=== PATIENT | male | born 1970 | race Hispanic/Latino ===

== ENCOUNTER → 2016-08-25 | Outpatient (CLI) | payer SELFPAY ==
--- NOTE | 2016-08-25 16:22 | CR ---
EXAMINATION: Two-view chest (PA and Lateral views). HISTORY: Cough. FINDINGS: The trachea is midline. The cardiomediastinal silhouette is within normal limits. No pulmonary infil trates, effusions or pneumothorax. Osseous structures appear unremarkable. IMPRESSION: No acute cardiopulmonary process.
== END ==
LOC: MW.CHFP 15:19
PROVIDERS: ATTEND Nurse Practitioner Family
DX: R05 Cough (principal)
CPT/HCPCS: 36415; 71020; 71020-26; 85025

== ENCOUNTER 2019-04-05 01:16 | Emergency (ER) | payer SELFPAY ==
[2019-04-05 01:26] VITALS: BP 128/79
[2019-04-05] MEDS ORDERED: Lidocaine 2% Viscous Solution 15 ML Cup PO ONE (01:38)
--- NOTE | 2019-04-05 01:38 | EDM.PDOC ---
ED HPI GENERAL MEDICAL PROBLEM - General Chief Complaint: ENT Problem Stated Complaint: PT BITE HIS TOUGUE Time Seen by Provider: 04/05/19 01:32 - History of Present Illness INITIAL COMMENTS - FREE TEXT/NARRATIVE: HISTORY AND PHYSICAL: History of present illness: The patient is a healthy 49-year-old male who presents after biting his tongue twice while eating pineapple tonight at dinner. He says he keeps bleeding and he is concerned. He has no other complaints and no fevers no chills no nausea vomiting. Review of systems: As per history of present illness and below otherwise all systems reviewed and negative. Past medical history: As per history of present illness and as reviewed below otherwise noncontributory. Surgical history: As per history of present illness and as reviewed below otherwise noncontributory. Social history: No reported history of drug or alcohol abuse. Family history: As per history of present illness and as reviewed below otherwise noncontributory. Physical exam: General: Well-developed well-nourished man who is nontoxic and speaking clearly in the ED. As I'm interviewing he is not spitting blood out of his mouth and is maintaining his secretions. HEENT: Atraumatic, normocephalic, pupils reactive, negative for conjunctival pallor or scleral icterus, mucous membranes moist, throat clear, neck supple, nontender, trachea midline. At the midpoint of the tongue just to the right of the midline there is a small laceration measuring less than 1 cm in length and on my initial evaluation there was no bleeding but with some manipulation there is a small loose and there is no gross swelling of the area. The patient is able to tolerate exam well and there are no other intraoral lesions. Lungs: Clear to auscultation, breath sounds equal bilaterally, chest nontender. Heart: S1S2, regular rate and rhythm no overt murmurs Abdomen: Soft, nondistended, nontender. NABS Pelvis: Deferred Genitourinary: Deferred. Rectal: Deferred. Extremities: Atraumatic, range of motion and no distal edema. Neurovascular unremarkable. Neuro: Awake, alert, oriented. Cranial nerves II through XII unremarkable. Cerebellum unremarkable. Motor and sensory unremarkable throughout. Exam nonfocal. Diagnostics: None Therapeutics: Viscous lidocaine for pain, local compression and T bag application per nursing Impression: Small tongue laceration stable Definitive disposition and diagnosis as appropriate pending reevaluation and review of above. Oral/Mouth Pain Score (Numeric/FACES): 7 - Related Data Allergies Allergy/AdvReac Type Severity Reaction Status Date / Time No Known Allergies Allergy Verified 04/05/19 01:23 Home Meds: Home Meds . [No Known Home Meds] 12/16/15 [History] Past Medical History - Past Health History Medical/Surgical History: Denies Medical/Surgical History - Infectious Disease History Infectious Disease History: Reports: Chicken Pox - Past Surgical History Head Surgeries/Procedures: Reports: None GI Surgical History: Reports: Appendectomy, Hernia, Inguinal Social & Family History - Family History Family Medical History: Noncontributory - Tobacco Use Smoking Status *Q: Never Smoker - Caffeine Use Caffeine Use: Reports: Coffee, Soda, Tea - Recreational Drug Use Recreational Drug Use: No ED ROS GENERAL - Review of Systems Review Of Systems: ROS reveals no pertinent complaints other than HPI. ED EXAM, GENERAL - Physical Exam Exam: See Below (See dictation) Course - Vital Signs Last Recorded V/S: Last Vital Signs Temp 36.1 C 04/05/19 01:23 Pulse 78 04/05/19 01:23 Resp 16 04/05/19 01:23 BP 128/79 04/05/19 01:23 Pulse Ox 96 04/05/19 01:23 - Orders/Labs/Meds Meds: Medications Discontinued Medications Generic Name Dose Route Start Last Admin Trade Name Cecelia PRN Reason Stop Dose Admin Lidocaine HCl 15 ml 04/05/19 01:38 Xylocaine 2% Viscous PO 04/05/19 01:39 ONETIME ONE Departure - Departure Time of Disposition: 02:01 Disposition: Home, Self-Care 01 Condition: Good Clinical Impression: Simple laceration of tongue - Discharge Information Referrals: PCP,None [Primary Care Provider] - Forms: ED Department Discharge Additional Instructions: The following information is given to patients seen in the emergency department who are being discharged to home. This information is to outline your options for follow-up care. We provide all patients seen in our emergency department with a follow-up referral. The need for follow-up, as well as the timing and circumstances, are variable depending upon the specifics of your emergency department visit. If you don't have a primary care physician on staff, we will provide you with a referral. We always advise you to contact your personal physician following an emergency department visit to inform them of the circumstance of the visit and for follow-up with them and/or the need for any referrals to a consulting specialist. The emergency department will also refer you to a specialist when appropriate. This referral assures that you have the opportunity for followup care with a specialist. All of these measure are taken in an effort to provide you with optimal care, which includes your followup. Under all circumstances we always encourage you to contact your private physician who remains a resource for coordinating your care. When calling for followup care, please make the office aware that this follow-up is from your recent emergency room visit. If for any reason you are refused follow-up, please contact the [facility] emergency department at and ask to speak to the emergency department charge nurse. [facility] Primary care- Internal Medicine and Family [facility] [address] Soft diet avoiding foods with a lot of acid, jagged edges and salt.. If bleeding restarts apply pressure and try to avoid manipulating your tongue so as not to aggravate the area. It will bleed intermittently on and off over the next 12-24 hours. Rinse your mouth gently with water after each time you eat. Return to ER as needed and as discussed
[2019-04-05 02:32] VITALS: PULSE 67
== END 2019-04-05 02:33 | disposition home or self-care (01) ==
LOC: MW.ED 01:16
DX: S01.512A Laceration without foreign body of oral cavity, initial encounter (principal); X58.XXXA Exposure to other specified factors, initial encounter
CPT/HCPCS: 99282; A9270

== ENCOUNTER 2024-11-28 14:01 | Emergency (ER) | payer SELFPAY ==
[2024-11-28] MEDS ORDERED: Sodium Chloride 0.9% 10 ML Syringe FLUSH PRN (14:10)
[2024-11-28] MEDS ORDERED: Sodium Chloride 0.9% 2.5 ML Syringe FLUSH PRN (14:10)
[2024-11-28] MEDS ORDERED: Sodium Chloride 0.9% 20 ML SDV IV PRN (14:10)
[2024-11-28 14:24] LABS: BASOPHILS ABSOLUTE AUTO 0.07 K/uL (0.00-0.20); BASOPHILS PERCENT AUTO 0.9 % (0.0-1.0); EOSINOPHILS ABSOLUTE AUTO 0.13 K/uL (0.00-0.45); EOSINOPHILS PERCENT AUTO 1.6 % (0.0-6.0); HEMOGLOBIN 15.8 g/dL (14.0-18.0); IMMATURE GRAN ABSOLUTE AUTO 0.02 K/uL (0.00-0.05); IMMATURE GRAN PERCENT AUTO 0.2 % (0.0-0.4); LYMPHOCYTES ABSOLUTE AUTO 3.41 K/uL (1.00-4.80); LYMPHOCYTES PERCENT AUTO 42.2 % (24.0-44.0); MEAN CORPUSCULAR HEMOGLOBIN 28.9 pg (28.0-32.0); MEAN CORPUSCULAR HGB CONC 34.3 g/dL (32.0-36.0); MEAN CORPUSCULAR VOLUME 84.1 fL (83.0-99.0); MEAN PLATELET VOLUME 10.6 fL (9.4-12.4); MONOCYTES PERCENT AUTO 8.7 % (0.0-8.0); NEUTROPHILS ABSOLUTE AUTO 3.75 K/uL (1.80-7.70); NEUTROPHILS PERCENT AUTO 46.4 % (41.0-71.0); PLATELET COUNT,PLT 227 K/uL (150-400); RED BLOOD CELL COUNT 5.47 M/uL (4.52-5.90); WHITE BLOOD CELL COUNT,WBC 8.08 K/uL (3.9-11.3)
[2024-11-28 14:35] LABS: INR 0.99 (0.86-1.11); PTT,PARTIAL THROMBOPLSTIN TIME 29.9 SEC (23.9-30.7)
[2024-11-28 14:43] LABS: A/G RATIO 1.2 (0.9-1.6); ALBUMIN 3.8 g/dL (3.4-5.0); BILIRUBIN TOTAL 0.4 mg/dL (0.2-1.0); CALCIUM 8.8 mg/dL (8.5-10.1); CARBON DIOXIDE,CO2 29.9 mmol/L (21.0-32.0); CREATININE 1.1 mg/dL (0.8-1.3); POTASSIUM,K 3.9 mmol/L (3.5-5.1)
[2024-11-28] MEDS: Iopamidol 755 MG/ML 500 ML Multipack Bottle IVPUSH STA (15:08)
[2024-11-28] MEDS: Clopidogrel 75 MG Tab PO ONE (17:24)
[2024-11-28] MEDS: Aspirin 81 MG Tab.Chew PO ONE (17:24)
[2024-11-28 17:27] VITALS: BP 129/84; PULSE 69
[2024-11-28 17:47] LABS: CHOLESTEROL HDL 44 mg/dL (40-60); CHOLESTEROL TOTAL 215 mg/dL (50-200)
[2024-11-28 18:07] LABS: TRIGLYCERIDES 410 mg/dL (0-200)
== END 2024-11-28 17:40 | disposition home or self-care (01) ==
LOC: MW.ED 14:01
DX: I63.9 Cerebral infarction, unspecified (principal); R20.0 Anesthesia of skin; R29.810 Facial weakness; E78.00 Pure hypercholesterolemia, unspecified; Z90.49 Acquired absence of other specified parts of digestive tract
CPT/HCPCS: 36415; 70450; 70496; 70498; 70551; 80053; 80061; 82947; 85025; 85610; 85730; 93005; 99284; A9270; Q9967; 93010